=== PATIENT | female | born 1965 | race Caucasian/White ===

== ENCOUNTER 2020-12-04 07:34 | Outpatient (REF) | payer BC, SELFPAY ==
[2020-12-04 11:46] LABS: MANUAL DIFF FLAG NO
[2020-12-04 11:56] LABS: Basophils Percent Auto 0.5 % (0-2); Eosinophils Absolute Auto 0.6 X10*3/uL (0.0-0.4); Hematocrit 37.2 % (37-47); Imm Gran Abs Auto 0.01 X10*3/uL (0.00-0.03); Imm Gran Pct Auto 0.2 % (0.0-0.4); Mean Corpuscular HGB Conc 32.3 g/dl (31.0-35.0); Mean Corpuscular Hemoglobin 30.5 pg (27.0-33.0); Mean Corpuscular Volume 94.4 fL (80-98); Mean Platelet Volume 9.9 fL (9.4-12.3); Monocytes Absolute Auto 0.4 X10*3/uL (0.1-1.2); Monocytes Percent Auto 6.4 % (2-11); Neutrophils Absolute Auto 2.7 X10*3/uL (2.0-8.3); Neutrophils Percent Auto 46.9 % (45-73); Platelet Count 320 X10*3/uL (160-400); Red Blood Count 3.94 X10*6/uL (4.20-5.50); Red Cell Distribution Width 12.2 % (11.0-16.0); White Blood Count 5.7 X10*3/uL (4.8-10.8)
[2020-12-04 12:26] LABS: Alanine Aminotransferase 19 U/L (0-31); Albumin Level 4.2 g/dL (3.5-5.0); Alkaline Phosphatase 79 U/L (39-117); Anion Gap 10 (12-20); Aspartate Amino Transferase 22 U/L (5-31); Bilirubin Total 0.6 mg/dL (0.0-1.0); Blood Urea Nitrogen 15 mg/dL (9-16); Calcium 9.1 mg/dL (8.4-10.2); Carbon Dioxide 29 mmol/L (22-29); Chloride 105 mmol/L (96-108); Cholesterol 290 mg/dL; Estimated Glomerular Filt Rate > 60; Glucose Fasting 83 mg/dL (60-99); HDL Cholesterol 68 mg/dL; LDL Cholesterol Calculated 203 mg/dl; Potassium 4.3 mmol/L (3.3-5.1); Sodium 140 mmol/L (135-145); Total Protein 6.8 g/dL (6.5-8.0); Triglycerides 96 mg/dL
[2020-12-04 12:31] LABS: Vitamin D 25-OH Total 52.5 ng/mL (>30)
[2020-12-07 04:08] LABS: ~HepC Num1 0.08 S/CO (0.00-0.79); ~Hepatitis C Antibody Nonreactive (Nonreactive)
== END 2020-12-04 07:35 | disposition home or self-care (01) ==
LOC: HO.MANLDS 07:34
PROVIDERS: PCP Internal Medicine; Visit Provider Internal Medicine
DX: Z00.00 Encounter for general adult medical examination without abnormal findings (principal)
CPT/HCPCS: 36415; 80053; 80061; 82306; 85025; 86803

== ENCOUNTER 2022-08-10 08:17 | Outpatient (REF) | payer BC, SELFPAY ==
[2022-08-10 11:16] LABS: MANUAL DIFF FLAG NO
[2022-08-10 11:31] LABS: Basophils Percent Auto 0.6 % (0-2); Eosinophils Absolute Auto 0.3 X10*3/uL (0.0-0.4); Eosinophils Percent Auto 6.5 % (0-4); Hematocrit 38.2 % (37.0-47.0); Hemoglobin 12.4 g/dl (12.0-16.0); Imm Gran Abs Auto 0.01 X10*3/uL (0.00-0.03); Imm Gran Pct Auto 0.2 % (0.0-0.4); Mean Corpuscular HGB Conc 32.5 g/dl (31.0-35.0); Mean Corpuscular Hemoglobin 30.5 pg (27.0-33.0); Mean Corpuscular Volume 94.1 fL (80.0-98.0); Mean Platelet Volume 9.9 fL (9.4-12.3); Monocytes Absolute Auto 0.4 X10*3/uL (0.1-1.2); Monocytes Percent Auto 6.9 % (2-11); Neutrophils Absolute Auto 2.4 x10*3/uL (2.0-8.3); Neutrophils Percent Auto 46.8 % (45-73); Platelet Count 342 X10*3/uL (160-400); Red Blood Count 4.06 X10*6/uL (4.20-5.50); Red Cell Distribution Width 12.2 % (11.0-16.0); White Blood Count 5.2 X10*3/uL (4.8-10.8)
[2022-08-10 13:40] LABS: Alanine Aminotransferase 24 U/L (0-31); Albumin Level 4.3 g/dL (3.5-5.0); Alkaline Phosphatase 86 U/L (39-117); Anion Gap 14 (12-20); Aspartate Amino Transferase 22 U/L (5-31); Bilirubin Total 0.5 mg/dL (0.0-1.0); Blood Urea Nitrogen 16 mg/dL (9-16); Calcium 9.6 mg/dL (8.4-10.2); Carbon Dioxide 26 mmol/L (22-29); Chloride 106 mmol/L (96-108); Cholesterol 294 mg/dL; Estimated Glomerular Filt Rate > 60; Glucose Random 89 mg/dL (60-115); HDL Cholesterol 66 mg/dL; LDL Cholesterol Calculated 206 mg/dl; Potassium 4.3 mmol/L (3.3-5.1); Sodium 142 mmol/L (135-145); Thyroid Stimulating Hormone 3.29 uIU/mL (0.32-4.0); Total Protein 6.8 g/dL (6.5-8.0); Triglycerides 114 mg/dL; Vitamin D 25-OH Total 42.5 ng/mL (>30)
[2022-08-10 13:47] LABS: Vitamin B12 399 pg/mL (200-900)
== END 2022-08-10 08:18 | disposition home or self-care (01) ==
LOC: HO.MANLDS 08:17
PROVIDERS: Visit Provider Internal Medicine
DX: Z00.00 Encounter for general adult medical examination without abnormal findings (principal)
CPT/HCPCS: 36415; 80053; 80061; 82306; 82607; 84443; 85025

== ENCOUNTER 2023-03-01 | Outpatient (REF) | payer BC, SELFPAY ==
[2023-03-01 11:50] LABS: Cholesterol 192 mg/dL; HDL Cholesterol 68 mg/dL; LDL Cholesterol Calculated 109 mg/dl; Triglycerides 76 mg/dL
[2023-03-01 12:15] LABS: Free T4 (Free Thyroxine) 0.93 ng/dL (0.71-1.85); Thyroid Stimulating Hormone 5.08 uIU/mL (0.32-4.0)
== END 2023-03-01 00:01 ==
LOC: HO.MANLDS
PROVIDERS: Visit Provider Internal Medicine
DX: E03.9 Hypothyroidism, unspecified (principal); E78.00 Pure hypercholesterolemia, unspecified
CPT/HCPCS: 36415; 80061; 84439; 84443

== ENCOUNTER 2023-09-05 07:45 | Outpatient (REF) | payer BC, SELFPAY ==
[2023-09-05 14:38] LABS: Cholesterol 185 mg/dL (<200); HDL Cholesterol 71 mg/dL (>40); LDL Cholesterol Calculated 101 mg/dL (<100); Triglycerides 69 mg/dL (<150)
== END 2023-09-05 07:46 | disposition home or self-care (01) ==
LOC: HO.MANLDS 07:45
PROVIDERS: Visit Provider Internal Medicine
DX: E78.00 Pure hypercholesterolemia, unspecified (principal); E03.9 Hypothyroidism, unspecified
CPT/HCPCS: 36415; 80061; 84439; 84443

== ENCOUNTER 2024-03-06 07:33 | Outpatient (REF) | payer BC, SELFPAY ==
[2024-03-06 14:10] LABS: Cholesterol 193 mg/dL (<200); HDL Cholesterol 61 mg/dL (>40); LDL Cholesterol Calculated 111 mg/dL (<100); Triglycerides 106 mg/dL (<150)
== END 2024-03-06 07:34 | disposition home or self-care (01) ==
LOC: HO.MANLDS 07:33
PROVIDERS: Visit Provider Internal Medicine
DX: E78.00 Pure hypercholesterolemia, unspecified (principal); E03.9 Hypothyroidism, unspecified
CPT/HCPCS: 36415; 80061

== ENCOUNTER 2025-04-15 07:53 | Outpatient (REF) | payer BC, SELFPAY ==
--- OUTSIDE RECORDS SUMMARY | 2025-04-15 07:56 | XMS_ITS | Encounter Summary ---
Author Organization [facility] Address [address] [address] [place] [phone] Phone Care Team Providers Care Quality Engineer Medical Device Name Role Phone Cortez Dumont Unavailable Cortez Dumont Darrin Primary Care Provider [phone] Encounter Details Date Type Department Care Team ([facility] st Contact Info) Description 05/13/2024 Transcribe Orders Virtual Department [address] [place] [address] Cortez Dumont DO [address] [place] [address] [email or web address] Breast screening (Primary Dx) Social History Tobacco Use Types Packs/Day Years Used Date Smoking Tobacco: Never Smokeless Tobacco: Never Alcohol Use Standard Drinks/Week Comments No 0 (1 standard drink = 0.6 oz pur e alcohol) Education Answer Date Recorded Are you interested in more education? Not on jonathan e 01/13/2023 Are you concerned about learning? Not on file 01/13/2023 No 01/13/2023 No 01/13/2023 Digital Access Answer Date Recorded No 02/11/2023 No 02/11/2023 Reliable internet access at home? Not on file 02/11/2023 Device with a working camera? Not on file Comments No Sex and Gender Information Value Date Recorded Sex Assigned at Female 09/25/2017 9:38 AM EST Legal Sex Female 9:42 PM EDT Gender Identity Female 09/25/2017 9:38 AM EST Sexual Orientation Straight 09/25/2017 9: 38 AM EST documented as of this encounter Plan of Treatment Not on file documented as of this encounter Results * BI MAMMOGRAM SCREENING WITH TOMOSYNTHESIS WITH CAD (BILATERAL) (09/06/2024 3:18 PM EST) Anatomical Region Laterality Modality Breast Left, Breast Right, Breast Bilateral Bila teral Mammography 09/08/2024 5:41 PM EST Impressions 09/08/2024 5:44 PM EST No mammographic evidence of malignancy in either breast. Annual screening mammography is recommended. BI-RADS 1 NEGATIVE The patient will be notified of the results and recommendations. Narrative 09/08/2024 5:44 PM EST BI MAMMOGRAM SCREENING WITH TOMOSYNTHESIS WITH CAD (BILATERAL) Additional patient information: Screening. COMPARISON: Comparison is made with relevant prior imaging. Breast composition: There are scattered areas of fibroglandular density. FINDINGS: No abnormal masses, suspicious calcifications, or other significant findings are identified mammographically in either breast. Procedure Note Katheryn Schofield, - 09/08/2024 BI MAMMOGRAM SCREENING WITH TOMOSYNTHESIS WITH CAD (BILATERAL) Additional patient information: Screening. COMPARISON: Comparison is made with relevant prior imaging. Breast composition: There are scattered areas of fibroglandular density. FINDINGS: No abnormal masses, suspicious calcifications, or other significantfindings are identified mammographically in either breast. IMPRESSION: No mammographic evidence of malignancy in either breast. Annual screening mammography is recommended. BI-RADS 1 NEGATIVE The patient will be notified of the results and recommendations. Cortez Dumont DO IMG MG EXAMS Final Result documented in this encounter Visit Diagnoses Diagnosis Breast screening- Primary Breast screening, unspecified Breast screening Breast screening, unspecified documented in this encounter Care Teams Quality Engineer Medical Device Relationship Specialty Start Date End Date Cortez Dumont DO [email or web address] PCP - General Internal Medicine 08/13/17 Cortez Dumont DO [email or web address] LMR Provider 07/04/17 documented as of this encounter Additional Source Comments The information contained in this document represents components of the legal health record. It is not the complete legal health record.[facility]
--- OUTSIDE RECORDS SUMMARY | 2025-04-15 07:56 | XMS_ITS | Data Portability ---
Author Organization [facility] Telehealth Patient Home Address [address] [place] [address] Assessment No assessment recorded. Plan of Treatment Reminders Order Date Submit Date Provider Last Modified By Organization Details Last Modified Time Details Appointments FOLLOW UP 15 2024 02:15P M DR SCOTT Not available Not available Not available ANNUAL EXAM 2024 10:00A M DR SCOTT Not available Not available Not available Lab lipid panel, blood 2023 024 [facility], [address] [place] [address], [id number], 09/23/2024 13:41:16 CMP, serum or plasma 2023 024 [facility], [address] [place] [address], [id number], 09/23/2024 13:59:06 CBC w/ auto diff 2023 024 [facility], [address] [place] [address], [id number], 09/23/2024 12:43:51 TSH + free T4, serum 2023 024 [facility], [address] [place] [address], [id number], 08/20/2024 10:23:04 lipid panel, blood 2022 023 [facility], [address] [place] [address], [id number], 09/06/2023 11:13:35 lipid panel, blood 2022 024 [facility], [address] [place] [address], [id number], 03/07/2024 11:12:21 lipid panel, blood 2023 024 [facility], [address] [place] [address], [id number], 03/07/2024 11:12:20 TSH + free T4, serum 2022 023 [facility], [address] [place] [address], [id number], 09/06/2023 11:13:36 CMP, serum or plasma 2021 022 [facility], [address] [place] [address], [id number], 08/12/2022 09:22:17 CBC w/ auto diff 2021 022 [facility], [address] [place] [address], [id number], 08/09/2022 16:30:40 lipid panel, blood 2021 022 [facility], [address] [place] [address], [address], 08/09/2022 16:30:41 vitamin D, 25-hydrox y, total, serum 2021 022 [facility], [address] [place] [address], [address], 08/09/2022 16:30:40 TSH, serum or plasma 2021 022 [facility], [address] [place] [address], [address], 08/09/2022 16:30:40 vitamin B12, serum 2021 [facility], [address] [place] [address], [address], 08/09/2022 16:30:40 CMP, serum or plasma 2020 [facility], [address] [place] [address], [id number], 12/07/2020 11:15:58 lipid panel, blood 2020 [facility], [address] [place] [address], 388[address], 12/07/2020 11:15:58 CBC w/ auto diff 2020 [facility], [address] [place] [address], [address], 12/07/2020 11:15:58 vitamin D, 25-hydrox y, total, serum 2020 [facility], [address] [place] [address], [address], 12/07/2020 11:15:58 hepatitis C Ab, serum 2020 021 [facility], [address] [place] [address], [address], 12/07/2020 11:15:58 Referral None recorded. Procedures None recorded. Surgeries None recorded. Imaging XR, shoulder, 2 or more view - RIGHT 2021 [email or web address] Not available 08/16/2022 08:30:25 Medication Orders meloxicam 15 mg tablet 2021 [id number], [address] [place], [address], 08/09/2022 16:31:30 Patient TargetsNo targets recorded. Patient Instructions Encounter Date Encounter Id Patient Instructions Last Modified By Organization Details Last Modified Time 11/08/2019 [id number] hypothyroidism: care instructions [email or web address] Not available 11/08/2019 16:02:12 Reason for Referral None Reported. Results Created Date Observation Date Name Description Value Unit Range Abnormal Flag Note LastModifiedBy Organization Detail LastModifiedTime 07/10/2007/10/2020 MAMMO , diagn ostic , digit al, bilat eral No observ ation record ed. [email or web address] [address], [address], 12/01/2020 13:55:02 07/12/2007/12/2021 MAMMO , scree rodrigue, digit al, bilat eral No observ ation record ed. [email or web address] [facility] [address] [place] [address], [address], 07/13/2021 07:32:43 07/19/2007/14/2022 MAMMO , scree rodrigue, digit al, bilat eral No observ ation record ed. [email or web address] [facility] [address] [place] [address], [address], 07/19/2022 10:30:07 08/16/20 22 08/15/2022 XR, arlenul suzanna, 2 or more view No observ ation record ed. [email or web address] [facility] [address] [place] [address], [address], 08/16/2023 15:21:49 07/20/20 23 07/17/2023 MAMMO , scree rodrigue, digit al, bilat eral No observ ation record ed. [email or web address] [facility] [address] [place] [address], [address], 08/16/2023 15:21:48 09/08/20 24 09/06/2024 MAMMO , scree rodrigue, digit al, bilat eral No observ ation record ed. [email or web address] [facility] ([facility]) - Callback Orders Only [address] [place] [address], [address], 09/09/2024 09:57:10 Result Notes None recorded. Problems Name Problem SNOMED Code Status Onset Date Resolution Date Notes Provider Name and Address Organization Details Recorded Time Hypothyro idism 51262836 Active 2017 [facility] 8 11:08:26 History of polyp of colon 259183329 Active 2017 Lyn Hanley NP, S [address] [place] [address], [phone], [facility] 8 19:59:24 Hyperchol esterolem ia 73694894 Active 2019 LINO Perdomo [address] [place] [address], [phone], [facility] 0 09:04:55 Tendiniti s of right rotator cuff 045279673745 34580 Active 2021 Cortez Scott DO [address] [place] [address], [phone], [facility] 2 16:29:37 Tinea corporis 96641259 Active 2023 Cortez Scott DO [address] [place] [address], [phone], [facility] 4 10:28:02 Acute conjuncti vitis 76679104 Active 2024 Cortez Scott DO [address] [place] [address], [phone], [facility] 5 14:30:29 Problem Notes None recorded. Procedures Surgical History Date Name Laterality Status Provider Name and Address Organization Details Recorded Time 015 Date of Last Pap Smear completed Lyn Hanley NP, S [address] [place] [address], [phone], [facility] 06/20/2018 15:38:13 994 Caesarean Section completed Lyn Hanley NP, Carmella [address] [place] [address], [phone], [facility] 12/28/2018 15:57:04 Cholecystectomy completed Lyn dong NP, S [address] [facility], [place], [address], [facility] 12/28/2018 15:56:51 Imaging Results None recorded. Procedure Notes None recorded. Medical Equipment None Reported. Allergies No known drug allergies Medications Name Sig Start Date Stop Date Status Note LastModified by Organization Details LastModified Time atorvastati n 20 mg tablet TAKE 1 TABLET BY MOUTH EVERY DAY 2024 active Not Available Not Available Not Avai lable meloxicam 15 mg tablet TAKE 1 TABLET BY MOUTH EVERY DAY active Not Available Not Available No t Available metronidazo le 500 mg tablet 03/05 completed Not Available Not Available Not Available sulfamethox azole 800 mg-trimetho prim 160 mg tablet 03/05 completed Not Available Not Available Not Available levothyroxi ne 25 mcg tablet TAKE 1 TABLET BY MOUTH EVERY DAY 12/11 completed Not Available Not Available Not Available levothyroxi ne 75 mcg tablet TAKE 1 TABLET BY MOUTH EVERY DAY active Not Available Not Available No t Available benzonatate 100 mg capsule 03/05 completed Not Available Not Available Not Available levothyroxi ne 50 mcg tablet TAKE 1 TABLET BY MOUTH EVERY DAY 03/03 completed Not Available Not Available Not Available erythromyci n 5 mg/gram (0.5 %) eye ointment APPLY 1 CM RIBBON INTO THE LOWER CONJUNCTI KIRK SAC(S) IN THE AFFECTED EYE(S) 3 TIMES PER DAY 08/16 completed Not Available Not Available Not Available neomycin-po lymyxin-dex ameth 3.5 mg/mL-10,00 0 unit/mL-0.1 % eye drops INSTILL 1 DROP INTO AFFECTED EYE(S) EVERY 3 TO 4 HOURS active Not Available Not Available No t Available clotrimazol e-betametha sone 1 %-0.05 % topical cream APPLY TO THE AFFECTED AND SURROUNDI NG AREAS OF SKIN BY TOPICAL ROUTE 2 TIMES PER DAY IN THE MORNING AND EVENING FOR 2 WEEKS active Not Available Not Available No t Available doxycycline hyclate 100 mg tablet 03/05 completed Not Available Not Available Not Available oxycodone 5 mg tablet 03/05 completed Not Available Not Available Not Available ProAir HFA 90 mcg/actuati on aerosol inhaler 03/05 completed Not Available Not Available Not Available GaviLyte-G 236 gram-22.74 gram-6.74 gram-5.86 gram oral solution 03/05 completed Not Available Not Available Not Available Vitamin D3 50 mcg (2,000 unit) capsule Take by oral route. active Not Available Not Available No t Available Vitals Date Recorded Body height Body mass index (BMI) Body weight Heart rate Oxygen saturation Oxygen saturation in Arterial blood by Pulse oximetry Systolic And Diastolic Provider Name and Address Organization Details Last Updated DateTime 0 153.04 cm 25.4 kg/m2 09534.6 g 74 /min 96 % 96 % 100/60 mm[Hg] Alie Beck [facility] 0 15:41:34 Date Recorded Body height Body mass index (BMI) Body weight Heart rate Oxygen saturation Oxygen saturation in Arterial blood by Pulse oximetry Systolic And Diastolic Provider Name and Address Organization Details Last Updated DateTime 1 153.04 cm 25 kg/m2 16286.4 9 g 76 /min 98 % 98 % 120/60 mm[Hg] Dayana Donald [facility] 1 13:47:55 Date Recorded Body height Body mass index (BMI) Body weight Oxygen saturation Oxygen saturation in Arterial blood by Pulse oximetry Heart rate Systolic And Diastolic Provider Name and Address Organization Details Last Updated DateTime 2 215.9 cm 12.7 kg/m2 97041.7 3 g 99 % 99 % 64 /min 118/70 mm[Hg] Danita Sorenson [facility] 2 15:46:47 Date Recorded Body weight Heart rate Oxygen saturation Oxygen saturation in Arterial blood by Pulse oximetry Systolic And Diastolic Provider Name and Address Organization Details Last Updated DateTime 3 62810.9 3 g 89 /min 99 % 99 % 120/74 mm[Hg] Niyah Rai [facility] 3 14:51:29 Date Recorded Body height Body mass index (BMI) Body weight Heart rate Oxygen saturation Oxygen saturation in Arterial blood by Pulse oximetry Systolic And Diastolic Provider Name and Address Organization Details Last Updated DateTime 4 152.4 cm 28.5 kg/m2 06653.4 9 g 87 /min 98 % 98 % 122/76 mm[Hg] Cortez Scott, DO [address] [place], [address] [place], [place] - [facility] 4 09:54:58 Social History Question Answer Notes LastModified by [employer] Details LastModified Time Tobacco Smoking Status Never Smoker Not Available [employer] 07/21/2020 03:36:23 What Was The Date Of Your Most Recent Tobacco Screening? 08/20/2024 [email or web address] Information not available 08/20/2024 How Much Tobacco Do You Smoke? No [id number] Information not available 07/21/2020 How Many Years Have You Smoked Tobacco? 0 [id number] Information not available 07/21/2020 Sex: Unknown Functional Status Question Answer Note LastModified by [employer] RegisterPatient Details LastModified Time Do you or have you ever used smokeless tobacco? Never used smokeless tobacco [id number] Information not available 07/21/2020 Do you or have you ever used e-cigarettes or vape? Never used electronic cigarettes [id number] Information not available 07/21/2020 Mental Status None recorded. Family History Relationship Description Onset Age of this Age Resolved Age Notes LastModified by Organization Details LastModified Time Mother Myasthenia gravis 75 [email or web address] Not available 2018 15:55:46 Father Chronic obstructive pulmonary disease 78 [email or web address] Not available 2018 15:56:00 Sister Asthma eskawski Not available 0 12/28/2018 15:56:19 Medical History Condition Response Coronary Artery Disease N Gout N Kidney Stones N Blood Diseases N Hyperthyroidism N Blood Transfusion N Breast Cancer N Hypothyroidism Y Lung Disease N Depression N COPD N Difficulty Swallowing N Anesthesia Complications N Anxiety Disorder N Muscle, Joint, or Bone Problems N Obesity N Vision or Eye Problems Y Arthritis N Polyps Y Cancer N Stroke N Varicosities N Bladder or Kidney Problems N High Cholesterol N Liver Disease N Fibromyalgia N Headaches Y Kidney Disease N Allergies/Hayfever N Heart Problems N Thyroid Problems Y GI Problems N Eating Disorder N Skin Problems N Anemia N Constipation N Diabetes N Seizures/Epilepsy N Tuberculosis N Congestive Heart Failure (CHF) N Eczema N Abuse/Domestic Violence N Diverticulitis N Reflux/GERD Y Hepatitis N Heart Disease N Pulmonary Embolism N Chronic Ear Infections N Hypertension N Chicken Pox Y Thrombophilias N Gynecological History Statement/Question Response Abnormal Pap Y On BCP's at Conception? N STIs/STDs N Current Control Method Menopause Age at Menarche 12 Age at First Child 28 If Post Menopausal, Age at Menopause 49 Sexually Active? Y Menses Monthly N Date of Last Pap Smear 09/18/2014 Sexual Problems? N Obstetrics History GPAL:G 3 P 2 0 1 0 Type Value Full Term 2 Spontaneous 1 Total 3 Immunizations Vaccine Type Date Status Note Provider Nam e and Address Organization Details Recorded Time Td (adult) 10/20/2012 [facility] 15:56:34 Past Encounters Encounter ID Performer Location Encounter Start Date Encounter Closed Date Diagnosis/Indication Diagnosis SNOMED-CT Code Diagnosis ICD10 Code Diagnosis Note [id number] Cortez Scott [address] [address] 02/26/2018 11:00:31 02/26/2018 12:44:11 Fall on or from stairs or steps 126333042 W10.9XXA Sprain of ankle 35331346 S93.402A [id number] Cortez Scott [address] [address] 03/05/2018 14:02:01 03/05/2018 15:37:34 Closed fracture of lateral malleolus 45393750 S82.65XD call if not improving or any worsening [id number] Cortez Scott [address] [address] 03/20/2018 14:46:46 03/20/2018 16:55:04 Closed fracture of calcaneus 10598537 S92.001D no proper diagnosis code, actually avulsion lateral malleolus [id number] Cortez Scott [address] [address] 06/20/2018 15:16:18 06/22/2018 08:19:00 Gynecologic examination 20193205 Z01.419 Hypothyroidism 70977715 E03.9 stable History of polyp of colon 226380313 Z86.010 aware colonoscop y due 3 years [id number] Cortez Scott [facility] [address] [facility] [address] [place] [address] 12/28/2018 15:45:50 12/28/2018 16:13:30 History of polyp of colon 329385362 Z86.010 aware colonoscop y due 3 years Hypothyroidism 38050805 E03.9 will repeat labs 2nd week January 2019 Vitamin D deficiency 347 66017 E55.9 improved, follow [id number] Cortez Scott [facility] [address] [facility] [address] [place] [address] 10/11/2019 16:04:52 10/11/2019 16:46:12 Hypothyroidism 11061820 E03.9 Vitamin D deficiency 347 49443 E55.9 Anemia 787268957 D64.9 doesn't eat a lot of meat had a very slight anemia last lab Adult heal th examination 609317163 Z00.00 Active or passive immunization 038031638 Z23 refuses flu shot Body mass index 25-29 - overweight 336201560 Z68.25 eats healthy walks daily [id number] Cortez Scott [facility] [address] [facility] [address] [address] 11/08/2019 15:37:06 11/08/2019 16:32:36 Hypercholesterolemia 54598238 E78.00 borderline ratio HDL was 71 all else elvated lengthy discussion of diet and exercise Hypothyroidism 40831620 E03.9 levels normal [id number] Cortez Scott DO [facility] [address] [facility] [address] [address] 12/01/2020 13:42:13 12/01/2020 14:13:51 Active or passive immunization 256512935 Z23 Adult heal th examination 383761152 Z00.00 will get lab [id number] Cortez Scott [facility] [address] [facility] [address] [place] [address] 08/09/2022 15:18:11 08/09/2022 16:40:01 Active or passive immunization 653976351 Z23 utd just got shingles vax Adult heal th examination 136380584 Z00.00 will get lab Tendinitis of right rotator cuff 6625830851 4544219 M67.813 [id number] Cortez Scott [facility] [address] [facility],[place] [address] 08/16/2023 14:47:36 08/16/2023 15:48:45 Hypercholesterolemia 32165501 E78.00 will need to have her get lab next summer Hypothyroidism 04281474 E03.9 rechk tsh [id number] Cortez Scott [facility] [address] [facility], [place] [address] 08/20/2024 09:48:33 08/20/2024 10:31:34 Active or passive immunization 054415999 Z23 utd just got shingles vax Adult heal th examination 412284796 Z00.00 will get lab Hypercholesterolemia 136 47870 E78.00 will need to have her get lab next summer Hypothyroidism 22211286 E03.9 rechk tsh Health Concerns Section Related Observation LastModified by Organization Detai ls LastModified Time None Recorded Concern Status LastModified by Organization Details LastModified Time None Recorded Advance Directives Directive None Recorded Payers Insurance Date Sequence Insurance Name Policy Number Policy Walker Covered Member ID Walker Member ID Guarantor Name 08/18/2024 1 [facility] Ant Mcelroy [id number] Guerita Mcelroy OBGyn Episode No OBEpisode recorded.
[2025-04-15 13:27] LABS: MANUAL DIFF FLAG NO
[2025-04-15 13:33] LABS: Hematocrit 37.6 % (37.0-47.0); Hemoglobin 12.6 g/dl (12.0-16.0); Imm Gran Abs Auto 0.01 X10*3/uL (0.00-0.03); Imm Gran Pct Auto 0.1 % (0.0-0.4); Lymphocytes Absolute Auto 2.5 X10*3/uL (1.2-4.9); Mean Corpuscular HGB Conc 33.5 g/dl (31.0-35.0); Mean Corpuscular Hemoglobin 31.0 pg (27.0-33.0); Mean Corpuscular Volume 92.4 fL (80.0-98.0); NRBC Abs Auto 0.000 X10*3/uL (0.0-0.012); NRBC Pct Auto 0.0 /100WBC (0.0-0.2); Platelet Count 305 X10*3/uL (160-400); Red Blood Count 4.07 X10*6/uL (4.20-5.50); White Blood Count 6.7 X10*3/uL (4.8-10.8)
[2025-04-15 13:50] LABS: Alanine Aminotransferase 42 U/L (0-31); Albumin Level 4.4 g/dL (3.5-5.0); Alkaline Phosphatase 101 U/L (39-117); Anion Gap 12 (12-20); Aspartate Amino Transferase 38 U/L (5-31); Blood Urea Nitrogen 14 mg/dL (9-16); Calcium 9.3 mg/dL (8.4-10.2); Carbon Dioxide 27 mmol/L (22-29); Chloride 107 mmol/L (96-108); Cholesterol 198 mg/dL (<200); Estimated Glomerular Filt Rate > 60; HDL Cholesterol 60 mg/dL (>40); Potassium 4.6 mmol/L (3.3-5.1); Sodium 141 mmol/L (135-145); Total Protein 7.1 g/dL (6.5-8.0); Triglycerides 131 mg/dL (<150)
[2025-04-15 13:57] LABS: Thyroid Stimulating Hormone 1.67 uIU/mL (0.32-4.0)
== END 2025-04-15 07:54 | disposition home or self-care (01) ==
LOC: HO.MANLDS 07:53
PROVIDERS: Visit Provider Internal Medicine
DX: E78.00 Pure hypercholesterolemia, unspecified (principal); E03.9 Hypothyroidism, unspecified
CPT/HCPCS: 36415; 80053; 80061; 84443; 85025